=== PATIENT | female | born 1980 | race Caucasian/White ===

== ENCOUNTER 2018-08-02 14:26 | Outpatient (CLI) | payer OTHER ==
[~2018-08-02] VITALS: Ht 162.6 cm; Wt 88.6 kg
[2018-08-02 14:25] VITALS: BP 98/61
[~2018-08-02 14:26] MED LIST: IBUP-1222 PO; OXYC-302 PO; PREN1TAB27 PO
== END 2018-08-02 15:45 | disposition home or self-care (01) ==
LOC: LDOP 14:26
PROVIDERS: ATTEND Obstetrics & Gynecology
DX: O36.8130 Decreased fetal movements, third trimester, not applicable or unspecified (principal); Z3A.37 37 weeks gestation of pregnancy
CPT/HCPCS: 59025; 76815; 99201; G0463